=== PATIENT | female | born 2000 | race Two or more races ===

== ENCOUNTER 2024-05-29 08:27 | Emergency (ER) | payer MEDICAID, OTHER ==
[~2024-05-29] VITALS: Ht 160 cm; Wt 92.7 kg
[2024-05-29 10:48] VITALS: BP 142/90; PULSE 103; RESP 16; TEMP 98.6; O2SAT 97
[2024-05-29] MEDS ORDERED: PROM1SOL4 PO (11:00)
[2024-05-29] MEDS ORDERED: AUG875T PO (11:00)
[2024-05-29] MEDS ORDERED: BENZ100C97 PO (11:00)
[2024-05-29] MEDS ORDERED: IBUP1TAB5 PO (11:00)
[2024-05-29] MEDS ORDERED: LIDO2SOL26 MT (11:00)
== END 2024-05-29 11:00 | disposition home or self-care (01) ==
LOC: ER 08:27
DX: J34.89 Other specified disorders of nose and nasal sinuses (principal); R05.9 Cough, unspecified; R07.0 Pain in throat; Z79.1 Long term (current) use of non-steroidal anti-inflammatories (NSAID); Z79.899 Other long term (current) drug therapy